=== PATIENT | female | born 1955 ===

== ENCOUNTER 2025-03-28 06:38 | Day surgery (SDC) | payer OTHER ==
[2025-03-22 10:06] VITALS: BP 137/84
[~2025-03-28] VITALS: Ht 152.4 cm; Wt 63.5 kg
[~2025-03-28 06:38] MED LIST: LOSARTAN; SIMVASTATIN
[2025-03-28] MEDS ORDERED: BUPIVACAINE HCL/MPF 0.5% 30ML VIAL ONE (08:10)
[2025-03-28] MEDS ORDERED: GENTAMICIN SULFATE 40 MG/ML VIAL ONE (08:10)
[2025-03-28] MEDS ORDERED: LIDOCAINE HCL 1%/EPINEPHRINE 20ML VIAL IJ ONE (08:11)
[2025-03-28] MEDS ORDERED: CEFAZOLIN SODIUM 1,000 MG VIAL ONE (08:11)
[2025-03-28] MEDS ORDERED: CHLORHEXIDINE GLUCONATE 120 ML BOTTLE TOP ONE (08:11)
[2025-03-28] MEDS ORDERED: TRAM1TAB98 PO (10:23)
[2025-03-28] MEDS ORDERED: MACROBID 100 M100 MG PO (10:24)
== END 2025-03-28 13:00 | disposition home or self-care (01) ==
LOC: CIR.AMB 06:38
PROVIDERS: ATTEND Obstetrics & Gynecology Gynecology
DX: N81.11 Cystocele, midline (principal)